=== PATIENT | male | born 1955 | race Caucasian/White ===

== ENCOUNTER → 2020-01-01 | Outpatient (CLI) | payer OTHER ==
[~2020-01-01] MED LIST: ASCO1TAB2 PO; ATOR40TA78 PO; CARV6.2512 PO; CHLO25TA PO; CHOL5000 PO; CYCL-259 PO; GABA300C10 PO; GLUC15006 PO; HYDR-36 PO; IRBE1TAB13 PO; METF500T17 PO; METH750T2 PO; MULT-658 PO; NIAC100035 PO; OMEG1CAP23 PO; OMEP-110 PO; OXYC-302 PO; OXYC-307 PO; POTA10TA5 PO; PRAV40TA2 PO; SAW450CA7 PO; TAMS0.4C2 PO; TRAM50TA2 PO; UBID1CAP43 PO
== END | disposition home or self-care (01) ==
LOC: STAR 13:15
PROVIDERS: ATTEND Orthopaedic Surgery
DX: Z01.818 Encounter for other preprocedural examination (principal); M17.11 Unilateral primary osteoarthritis, right knee
CPT/HCPCS: 87081

== ENCOUNTER 2020-01-09 07:26 | Observation (INO) | payer OTHER ==
[~2020-01-09] VITALS: Ht 167.6 cm; Wt 121.1 kg
[~2020-01-09 07:26] MED LIST changes: +EPINEPHRINE 1 MG/ML, 1ML ONE; +KETOROLAC 60 MG/2 ML ONE; +ROPIvacaine/PF 0.2%, 20 ML ONE; +SODIUM CHLORIDE 0.9% 50 ML ONE; +TRANEXAMIC ACID 100 MG/ML, 10ML ONE; +VANCOMYCIN 1,000 MG ONE
[2020-01-09] MEDS ORDERED: LACTATED RINGERS 1,000 ML IV SCH (07:50)
[2020-01-09 07:56] VITALS: BP 133/79
[2020-01-09] MEDS ORDERED: ONDANSETRON ODT 8 MG PO ONE (08:00)
[2020-01-09] MEDS ORDERED: ACETAMINOPHEN 500 MG TABLET PO ONE (08:00)
[2020-01-09] MEDS ORDERED: DIAZEPAM 5 MG TABLET PO ONE (08:00)
[2020-01-09] MEDS ORDERED: GABAPENTIN 300 MG CAPSULE PO ONE (08:00)
[2020-01-09] MEDS ORDERED: MIDAZOLAM 1 MG/ML, 2ML ONE (08:37)
[2020-01-09] MEDS ORDERED: FENTANYL PF 250 MCG/5ML ONE (08:37)
[2020-01-09] MEDS ORDERED: PROPOFOL 50 ML ONE ×2 (08:38→10:00)
[2020-01-09] MEDS ORDERED: BUPIVACAINE/PF 0.25% ONE (08:38)
[2020-01-09 09:21] LABS: BASOPHILS # (AUTO) 0.08 x10^3/uL (0-0.1); BASOPHILS % (AUTO) 1 % (0-1); EOSINOPHILS # (AUTO) 0.35 x10^3/uL (0-0.4); EOSINOPHILS % (AUTO) 3 % (1-7); LYMPHOCYTES % (AUTO) 13 % (22-44); MD SCAN; MEAN CORPUSCULAR HEMOGLOBIN 30.7 pg (27.5-34.5); MEAN CORPUSCULAR HGB CONC 32.6 g/dL (33.2-36.2); MEAN CORPUSCULAR VOLUME 94.2 fL (81-97); MEAN PLATELET VOLUME 9.4 fL (7.4-10.4); MONOCYTES # (AUTO) 0.85 x10^3/uL (0.2-0.8); MONOCYTES % (AUTO) 8 % (2-9); NEUTROPHILS # (AUTO) 8.58 x10^3/uL (1.8-6.8); NEUTROPHILS % (AUTO) 76 % (42-75); PLATELET COUNT 287 x10^3/uL (130-400); RED BLOOD COUNT 4.77 x10^6/uL (4.38-5.82); RED CELL DISTRIBUTION WIDTH 14.8 % (9.4-14.8)
[2020-01-09] MEDS ORDERED: CEFAZOLIN 1,000 MG ONE ×2 (09:30)
[2020-01-09] MEDS ORDERED: PROPOFOL 10 MG/ML, 20ML ONE (09:44)
[2020-01-09] MEDS ORDERED: SUCCINYLCHOLINE 20 MG/ML, 10ML ONE (09:44)
[2020-01-09] MEDS ORDERED: ONDANSETRON 2MG/ML, 2ML ONE (09:45)
[2020-01-09] MEDS ORDERED: METOPROLOL 1 MG/ML, 5ML ONE (09:45)
[2020-01-09] MEDS ORDERED: DEXAMETHASONE 4 MG/ML, 1ML ONE (09:45)
[2020-01-09] MEDS ORDERED: ONDANSETRON 2MG/ML, 2ML IV PRN ×2 (10:00→11:00)
[2020-01-09] MEDS ORDERED: ONDANSETRON ODT 8 MG PO PRN (10:00)
[2020-01-09] MEDS ORDERED: MIDAZOLAM 1 MG/ML, 2ML IV PRN (10:00)
[2020-01-09] MEDS ORDERED: OXYcodone 5 MG/5 ML ORAL.SOL UDC PO PRN (10:00)
[2020-01-09] MEDS ORDERED: METOPROLOL 1 MG/ML, 5ML IV PRN (10:00)
[2020-01-09] MEDS ORDERED: DIPHENHYDRAMINE 50 MG/ML, 1ML IVPush PRN (10:00)
[2020-01-09] MEDS ORDERED: PROMETHAZINE 25 MG/ML, 1ML IV PRN (10:00)
[2020-01-09] MEDS ORDERED: DIAZEPAM 5 MG/ML, 2ML IVPush PRN (10:00)
[2020-01-09] MEDS ORDERED: MEPERIDINE/PF 25MG/ML,1ML IVPush PRN (10:00)
[2020-01-09] MEDS ORDERED: EPHEDRINE 50 MG/ML, 1ML IVPush PRN (10:00)
[2020-01-09] MEDS ORDERED: MORPHINE SULFATE 4 MG/ML, 1ML IVPush PRN (10:00)
[2020-01-09] MEDS ORDERED: PROMETHAZINE 12.5 MG SUPP PR PRN (11:00)
[2020-01-09] MEDS ORDERED: PSYLLIUM PACKET PO PRN (11:00)
[2020-01-09] MEDS ORDERED: MAGNESIUM HYDROXIDE 8%, 30ML UDC PO PRN (11:00)
[2020-01-09] MEDS ORDERED: HYDROmorphone 1 MG/ML, 1ML INJ IVPush PRN (11:00)
[2020-01-09] MEDS ORDERED: DIAZEPAM 5 MG TABLET PO PRN (11:00)
[2020-01-09] MEDS ORDERED: BISACODYL 10 MG SUPP PR PRN (11:00)
[2020-01-09] MEDS ORDERED: DIPHENHYDRAMINE 25 MG CAPSULE PO PRN (11:00)
[2020-01-09] MEDS ORDERED: ONDANSETRON 4 MG TABLET PO PRN (11:00)
[2020-01-09] MEDS ORDERED: POLYETHYLENE GLYCOL 17 GM PACKET PO PRN (11:00)
[2020-01-09] MEDS: INSULIN REGULAR 100 UNITS/ML, 3ML VIAL SQ-INSULIN SCH ×3 (11:00→20:02)
[2020-01-09] MEDS ORDERED: ZOLPIDEM 5MG TABLET PO PRN (11:00)
[2020-01-09] MEDS ORDERED: ALUMINUM/MAG/SIMETHICONE 30 ML UDC PO PRN (11:00)
[2020-01-09] MEDS: KETOROLAC 30 MG/1 ML IV SCH ×3 (11:00→22:57)
[2020-01-09] MEDS ORDERED: SENNA/DOCUSATE TABLET PO PRN (11:00)
[2020-01-09] MEDS ORDERED: OXYcodone 5 MG/5 ML ORAL.SOL UDC ONE ×2 (11:21→11:28)
[2020-01-09] MEDS ORDERED: FENTANYL PF 100 MCG/2ML ONE (11:21)
[2020-01-09] MEDS: FENTANYL PF 100 MCG/2ML IV PRN ×2 (11:25→11:40)
[2020-01-09] MEDS ORDERED: KETOROLAC 30 MG/1 ML ONE (11:43)
[2020-01-09] MEDS ORDERED: TRANEXAMIC ACID 1,000 MG in SODIUM CHLORIDE 0.9% 100 ML IVPB ONE (12:00)
[2020-01-09] MEDS ORDERED: HYDROmorphone 1 MG/ML, 1ML INJ ONE (12:06)
[2020-01-09] MEDS: SODIUM CHLORIDE 0.9% 1,000 ML IV SCH (14:08)
[2020-01-09] MEDS: ACETAMINOPHEN 500 MG TABLET PO SCH ×2 (14:08→19:58)
[2020-01-09] MEDS: CALCIUM/VITAMIN D3 250-125 TABLET PO SCH ×3 (14:08→16:43)
[2020-01-09 14:38] VITALS: BP 121/77
[2020-01-09] MEDS: GABAPENTIN 300 MG CAPSULE PO SCH ×2 (16:36→19:58)
[2020-01-09] MEDS: FERROUS SULFATE 325 MG TABLET PO SCH (16:36)
[2020-01-09] MEDS: CEFAZOLIN PMX 2GM/50ML 50 ML IVPB SCH (16:40)
[2020-01-09] MEDS: ASPIRIN 81 MG TABLET EC PO SCH ×2 (16:40→19:58)
[2020-01-09] MEDS: metFORMIN 500 MG TABLET PO SCH (16:40)
[2020-01-09 19:16] VITALS: BP 136/72
[2020-01-09] MEDS: DOCUSATE 100 MG CAPSULE PO SCH (19:57)
[2020-01-09] MEDS: OXYcodone IR 5MG TABLET PO PRN (19:57)
[2020-01-09] MEDS ORDERED: ATORVASTATIN 40 MG TABLET PO SCH (21:00)
[2020-01-10] MEDS: SODIUM CHLORIDE 0.9% 1,000 ML IV SCH ×2 (00:16→13:40)
[2020-01-10] MEDS: OXYcodone IR 5MG TABLET PO PRN ×4 (00:26→14:24)
[2020-01-10 00:44] VITALS: BP 155/65
[2020-01-10] MEDS: CEFAZOLIN PMX 2GM/50ML 50 ML IVPB SCH (00:54)
[2020-01-10] MEDS: ACETAMINOPHEN 500 MG TABLET PO SCH ×3 (02:39→14:24)
[2020-01-10 04:01] VITALS: BP 114/66
[2020-01-10] MEDS: KETOROLAC 30 MG/1 ML IV SCH ×2 (04:35→11:40)
[2020-01-10] MEDS ORDERED: DEXAMETHASONE 4 MG/ML, 1ML IVPush SCH (06:00)
[2020-01-10] MEDS ORDERED: DEXAMETHASONE 4 MG/ML, 1ML IVPush ONE (06:30)
[2020-01-10 06:59] VITALS: BP 107/58
[2020-01-10] MEDS: DOCUSATE 100 MG CAPSULE PO SCH (08:33)
[2020-01-10] MEDS: FERROUS SULFATE 325 MG TABLET PO SCH (08:33)
[2020-01-10] MEDS: CALCIUM/VITAMIN D3 250-125 TABLET PO SCH ×2 (08:34→11:39)
[2020-01-10] MEDS: ASPIRIN 81 MG TABLET EC PO SCH (08:35)
[2020-01-10] MEDS: metFORMIN 500 MG TABLET PO SCH (08:36)
[2020-01-10] MEDS: GABAPENTIN 300 MG CAPSULE PO SCH (08:37)
[2020-01-10] MEDS: INSULIN REGULAR 100 UNITS/ML, 3ML VIAL SQ-INSULIN SCH ×2 (08:38→11:39)
[2020-01-10] MEDS ORDERED: VALSARTAN 320 MG TABLET PO SCH (09:00)
[2020-01-10] MEDS ORDERED: HYDROCHLOROTHIAZIDE 12.5 MG CAPSULE PO SCH (09:00)
[2020-01-10] MEDS ORDERED: CARVEDILOL 6.25 MG TABLET PO SCH (09:00)
[2020-01-10] MEDS ORDERED: TAMSULOSIN 0.4 MG CAP.ER.24H PO SCH (09:00)
[2020-01-10] MEDS ORDERED: MULTIVITAMINS/MINERALS TABLET PO SCH (09:00)
[2020-01-10] MEDS ORDERED: POTASSIUM CHLORIDE 10 MEQ TABLET.ER PO SCH (09:00)
[2020-01-10] MEDS ORDERED: CHLORTHALIDONE 25 MG TABLET PO SCH (09:00)
[2020-01-10] MEDS ORDERED: ASCORBIC ACID 500 MG TABLET PO SCH (09:00)
[2020-01-10] MEDS ORDERED: OMEPRAZOLE 20 MG CAPSULE.DR PO SCH (09:00)
[2020-01-10 15:51] VITALS: BP 135/71
== END 2020-01-10 16:10 | disposition home or self-care (01) ==
LOC: OUT 07:26 → ORIP 10:56 → 4NE 12:59 → DCLOUNGE 01-10 16:04
PROVIDERS: ADMIT Orthopaedic Surgery; ATTEND Orthopaedic Surgery
DX: M17.11 Unilateral primary osteoarthritis, right knee (principal); E11.9 Type 2 diabetes mellitus without complications; I10 Essential (primary) hypertension; Z87.891 Personal history of nicotine dependence; Z79.899 Other long term (current) drug therapy
CPT/HCPCS: 27447; 36415; 73560; 82962; 85014; 85018; 85025; 93005; 96365; 96366; 96375; 96376; 97110; 97161; 97166; C1713; C1776; G0378; J0171; J0330; J0690; J1100; J1170; J1885; J2250; J2405; J2704; J2795; J3010; J3490; J7030; J7120; Q0162; J3370